=== PATIENT | female | born 1960 | race Native Hawaiian/Other Pacific Islander ===

== ENCOUNTER → 2018-03-19 | Outpatient (CLI) | payer BC, OTHER ==
--- NOTE | 2018-03-19 14:21 | Diagnostic Imaging Report ---
Clinical indication: Patient with hematuria. Exam: Ultrasound of both kidneys. Comparison: None. Findings: Both kidneys are normal in size, shape, echogenicity and cortical thickness without hydronephrosis, stones, or focal lesions with the right and left kidneys measuring 8.8 cm and 9.7 cm in their craniocaudal dimensions, respectively. The bladder is partially fluid-filled with no gross abnormality. Ureteral jets are not visualized on this exam. Impression: 1: Unremarkable bilateral renal ultrasound. 2: Bilateral ureteral jets are not visualized on this exam. Otherwise, the bladder is unremarkable as visualized. Dictated by: Dictated on workstation # [id number]
== END ==
LOC: RAD 13:25
PROVIDERS: ATTEND Nurse Practitioner Adult Health
DX: R31.0 Gross hematuria (principal); R31.29 Other microscopic hematuria
CPT/HCPCS: 76770

== ENCOUNTER 2019-02-07 12:30 | Outpatient (CLI) | payer OTHER ==
[~2019-02-07] VITALS: Ht 165.1 cm; Wt 76.2 kg
[2019-02-07] MEDS ORDERED: LEVO75TA6 PO (12:46)
[2019-02-07] MEDS ORDERED: ESTR0.62 PO (12:46)
== END 2019-02-07 12:56 | disposition home or self-care (01) ==
LOC: PREOP 12:30
PROVIDERS: ATTEND Surgery
DX: Z01.818 Encounter for other preprocedural examination (principal)

== ENCOUNTER 2019-02-12 08:25 | Day surgery (SDC) | payer OTHER ==
[~2019-02-12] VITALS: Ht 165.1 cm; Wt 76.2 kg
[~2019-02-12 08:25] MED LIST: ESTR0.62 PO; LEVO75TA6 PO
--- OUTSIDE RECORDS SUMMARY | 2019-02-12 08:29 | XMS REPORT ---
Author Author Migration, Doctor Organization [facility] Address Unknown Phone Unavailable Care Team Providers Care Director Corporate Security Name Role Phone Migration, Doctor Unavailable Unavailable PROBLEMS Type Condition ICD9-CM Code DVE96-NG Code Onset Dates Condition Status SNOMED Code Problem Overweight (BMI 25.0-29.9) E66.3 Active 381539574 Problem Postablative hypothyroidism E89.0 Active 927684737 Problem Papanicolaou smear of cervix with atypical squamous cells of undetermined significance (ASC-US) 795.01 Active 432795080 Problem Encopresis 307.7 Active 401217420 ALLERGIES No Information ENCOUNTERS Encounter Location Date Diagnosis [facility] [address] [id number] December, Postablative hypothyroidism E89.0 and Overweight (BMI 25.0-29.9) E66.3 [facility] [id number] [place] [id number] Oct, [address] [id number] Jul, [facility] [id number] [place] [address] [id number] Jul, Hypothyroidism, unspecified hypothyroidism type E03.9 [id number] [place] [address] [id number] Jun, Hypothyroidism, unspecified hypothyroidism type E03.9 [id number] [place] [id number] Jan, [address] [id number] December, Visit for suture removal V58.32 [facility] [id number] [place] [address] Nov, [facility] [id number] [place] [address] Nov, [facility] [address] [id number] [place] [id number] May, [facility] [address] [facility] [id number] [place] [address] May, [facility] [address] [id number] [place] [id number] May, [facility] [address] [facility] [id number] [place] [address] May, [facility] [address] [id number] [place] [id number] Apr, [facility] [address] [facility] [id number] [place] [address] Apr, [facility] [address] [id number] [place] [id number] Nov, [facility] [address] [place] [address] Nov, [facility] [address] [id number] [place] [phone] Apr, [facility] [address] [id number] [place] [id number] Apr, [facility] [address] [facility] [id number] [place] [address] Mar, [facility] [address] [id number] [place] [id number] Mar, [facility] [address] [id number] [place] [id number] Sep, [facility] [place] [facility] [address] [facility] [id number] [place] [address] Sep, [facility] [address] [id number] [place] [id number] Aug, [facility] [address] [id number] [place] [id number] Aug, [facility] [address] [id number] [place] [phone] Aug, [facility] [address] [id number] [place] [id number] Jul, [facility] [address] [id number] [place] [id number] Jul, [facility] [place] [facility] [address] [facility] [id number] [place] [address] Jul, [facility] [place] [facility] [address] [facility] [id number] [place] [address] Jul, [facility] [address] [id number] [place] [id number] Jul, [facility] [place] [facility] [address] [facility] [id number] [place] [address] Jul, [facility] [place] [facility] [address] [facility] [id number] [place] [address] 17 Jul, 2012 [facility] [address] [id number] [place] [id number] 15 Jul, 2012 [facility] [place] [facility] [address] [facility] [id number] [place] [address] 15 Jul, 2012 [facility] [address] [id number] [place] [id number] 14 Jul, 2012 [facility] [place] [facility] [address] [facility] [id number] [place] [address] 14 Jul, 2012 [facility] [address] [id number] [place] [id number] 13 Jul, 2012 [facility] [place] [facility] [address] [facility] [id number] [place] [address] Jul, [facility] [address] [id number] [place] [id number] Jul, [facility] [place] [facility] [address] [facility] [id number] [place] [address] Jul, [facility] [address] [id number] [place] [id number] Jun, [facility] [place] [facility] [address] [facility] [id number] [place] [address] Jun, [facility] [address] [id number] [place] [id number] Mar, [facility] [id number] [place] [address] Nov, [facility] [address] [id number] [place] [id number] Nov, [facility] [address]100[place] [place] [id number] Nov, [facility] [address] [place] [address] [id number] Oct, [address] [place] [address] [id number] Sep, [facility] [id number] [place] [address] May, [facility] [id number] [place] [address] Jul, [facility] [id number] [place] [address] Jul, [facility] [id number] [place] [address] May, IMMUNIZATIONS No Known Immunizations SOCIAL HISTORY Never Assessed REASON FOR VISIT [facility] [place] VITAL SIGNS MEDICATIONS No Known Medications RESULTS No Results PROCEDURES No Known procedures INSTRUCTIONS MEDICATIONS ADMINISTERED No Known Medications MEDICAL (GENERAL) HISTORY Type Description Date Medical History hyperlipidemia Medical History hyperthyroidism Surgical History orthopedic surgery-titanium yuni in left leg 08/2008
--- OUTSIDE RECORDS SUMMARY | 2019-02-12 08:29 | XMS REPORT ---
Author Author TIARRA BARROSO [facility] eClinicalWorks Address Unknown Phone Unavailable Care Team Providers Care Field Logistics Coordinator Name Role Phone TIARRA BARROSO CP Unavailable Allergies No Known Allergies Problems Problem Type Condition Code Onset Dates Condition Status Problem Papanicolaou smear of cervix with atypical squamous cells of undetermined significance (ASC-US) 795.01 Active Assessment Hypothyroidism, unspecified hypothyroidism type E03.9 Active Problem Screening for lipoid disorders V77.91 Active Problem Unspecified breast screening V76.10 Active Problem Family history of diabetes mellitus V18.0 Active Problem Sacroiliitis, not elsewhere classified 720.2 Active Problem Encopresis 307.7 Active Problem Screening for malignant neoplasm of the cervix V76.2 Active Problem Special screening for malignant neoplasms, colon V76.51 Active Medications No Known Medications Procedures Procedure Coding System Code Date LIPID PANEL CPT-4 67918 Jul 06, 2015 COMPLETE CBC W/AUTO DIFF WBC CPT-4 88930 Jul 06, 2015 COMPREHEN METABOLIC PANEL CPT-4 38191 Jul 06, 2015 VENIPUNCT, ROUTINE* CPT-4 73461 Jul 06, 2015 ASSAY THYROID STIM HORMONE CPT-4 90172 Jul 06, 2015 Results No Known Results Summary Purpose eClinicalWorks Submission
--- OUTSIDE RECORDS SUMMARY | 2019-02-12 08:29 | XMS REPORT ---
Author Author TIARRA BARROSO [facility] [employer]Works Address Unknown Phone Unavailable Care Team Providers Care Scuba Diver Name Role Phone TIARRA BARROSO CP Unavailable Allergies No Known Allergies Problems Problem Type Condition Code Onset Dates Condition Status Problem Papanicolaou smear of cervix with atypical squamous cells of undetermined significance (ASC-US) 795.01 Active Problem Screening for lipoid disorders V77.91 Active Problem Unspecified breast screening V76.10 Active Problem Family history of diabetes mellitus V18.0 Active Problem Sacroiliitis, not elsewhere classified 720.2 Active Problem Encopresis 307.7 Active Problem Screening for malignant neoplasm of the cervix V76.2 Active Problem Special screening for malignant neoplasms, colon V76.51 Active Medications Medication Code System Code Instructions Start Date End Date Status Dosage Levothyroxine Sodium [facility] [address]-73 100 MCG Orally Once a day Jul 02, 2015 1 tablet Results No Known Results Summary Purpose eClinicalWorks Submission
--- OUTSIDE RECORDS SUMMARY | 2019-02-12 08:29 | XMS REPORT ---
Author Author Migration, Doctor Organization [facility] Address Unknown Phone Unavailable Care Team Providers Care Head Of Integrated Media Name Role Phone Migration, Doctor Unavailable Unavailable PROBLEMS Type Condition ICD9-CM Code YYV73-PL Code Onset Dates Condition Status SNOMED Code Problem Overweight (BMI 25.0-29.9) E66.3 Active 724734346 Problem Postablative hypothyroidism E89.0 Active 927422731 Problem Papanicolaou smear of cervix with atypical squamous cells of undetermined significance (ASC-US) 795.01 Active 775200990 Problem Encopresis 307.7 Active 438470623 ALLERGIES No Information ENCOUNTERS Encounter Location Date Diagnosis [facility] [address] [id number] December, Postablative hypothyroidism E89.0 and Overweight (BMI 25.0-29.9) E66.3 [facility] [id number] [place] [address] [id number] Oct, [address] [id number] Jul, [facility] [id number] [place] [address] [id number] Jul, Hypothyroidism, unspecified hypothyroidism type E03.9 [id number] [place] [address] [id number] Jun, Hypothyroidism, unspecified hypothyroidism type E03.9 [id number] [place] [address] [id number] Jan, [address] [id number] December, Visit for suture removal V58.32 [facility] [id number] [place] [address] Nov, [facility] [id number] [place] [address] Nov, [facility] [address] [id number] [place] [id number] May, [facility] [address] [facility] [id number] [place] [address] May, [facility] [address] [id number] [place] [id number] May, [facility] [address] [facility] [id number] [place] [address] May, [facility] [address] [id number] [place] [id number] Apr, [facility] [address] [facility] [id number] [place] [address] Apr, [facility] [address] [id number] [place] [id number] Nov, [facility] [address] [address] Nov, [facility] [address] [id number] [place] [id number] Apr, [facility] [address] [id number] [place] [id number] Apr, [facility] [address] [facility] [id number] [place] [address] Mar, [facility] [address] [id number] [place] [id number] Mar, [facility] [address] [id number] [place] [id number] Sep, [facility] [place] [facility] [address] [facility] [id number] [place] [address] Sep, [facility] [address] [id number] [place] [phone] Aug, [facility] [address] [id number] [place] [id number] Aug, [facility] [address] [id number] [place] [id number] Aug, [facility] [address] [id number] [place] [id number] Jul, [facility] [address] [id number] [place] [id number] Jul, [facility] [place] [facility] [address] [facility] [id number] [place] [address] Jul, [facility] [place] [facility] [address] [facility] [id number] [place] [address] Jul, [facility] [address] [id number] [place] [phone] Jul, [facility] [place] [facility] [address] [facility] [id number] [place] [address] Jul, [facility] [place] [facility] [address] [facility] [id number] [place] [address] 17 Jul, 2012 [facility] [address] [id number] [place] [id number] 15 Jul, 2012 [facility] [place] [facility] [address] [facility] [id number] [place] [address] 15 Jul, 2012 [facility] [address] [id number] [place] [id number] 14 Jul, 2012 [facility] [place] [facility] [address] [facility] [id number] [place] [address] 14 Jul, 2012 [facility] [address] [id number] [place] [id number] 13 Jul, 2012 [facility] [place] [facility] [address] [facility] [id number] [place] [address] Jul, [facility] [address] [id number] [place] [id number] Jul, [facility] [place] [facility] [address] [facility] [id number] [place] [address] Jul, [facility] [address] [id number] [place] [id number] Jun, [facility] [place] [facility] [address] [facility] [id number] [place] [address] Jun, [facility] [address] [id number] [place] [id number] Mar, [facility] [id number] [place] [address] Nov, [facility] [address] [id number] [place] [id number] Nov, [facility] [address]100[place] [id number] Nov, [facility] [address] [place] [address] [id number] Oct, [address] [place] [id number] Sep, [facility] [id number] [place] [address] May, [facility] [id number] [place] [address] Jul, [facility] [id number] [place] [address] Jul, [facility] [id number] [place] [address] May, IMMUNIZATIONS No Known Immunizations SOCIAL HISTORY Never Assessed REASON FOR VISIT [facility] [place] PLAN OF CARE VITAL SIGNS MEDICATIONS No Known Medications RESULTS No Results PROCEDURES No Known procedures INSTRUCTIONS MEDICATIONS ADMINISTERED No Known Medications MEDICAL (GENERAL) HISTORY Type Description Date Medical History hyperlipidemia Medical History hyperthyroidism Surgical History orthopedic surgery-titanium yuni in left leg 08/2008
--- OUTSIDE RECORDS SUMMARY | 2019-02-12 08:29 | XMS REPORT ---
Author Author Migration, Doctor Organization [facility] Address Unknown Phone Unavailable Care Team Providers Care Documentation Lead Name Role Phone Migration, Doctor Unavailable Unavailable PROBLEMS Type Condition ICD9-CM Code MKP67-FJ Code Onset Dates Condition Status SNOMED Code Problem Overweight (BMI 25.0-29.9) E66.3 Active 514986668 Problem Postablative hypothyroidism E89.0 Active 894738651 Problem Papanicolaou smear of cervix with atypical squamous cells of undetermined significance (ASC-US) 795.01 Active 393785078 Problem Encopresis 307.7 Active 107471071 ALLERGIES No Information ENCOUNTERS Encounter Location Date Diagnosis [facility] [address] [id number] December, Postablative hypothyroidism E89.0 and Overweight (BMI 25.0-29.9) E66.3 [facility] [id number] [place] [id number] Oct, [address] [id number] Jul, [facility] [id number] [place] [address] [id number] Jul, Hypothyroidism, unspecified hypothyroidism type E03.9 [id number] [place] [address] [id number] Jun, Hypothyroidism, unspecified hypothyroidism type E03.9 [id number] [place] [id number] Jan, [address] [id number] December, Visit for suture removal V58.32 [facility] [id number] [place] [address] Nov, [facility] [id number] [place] [address] Nov, [facility] [address] [id number] [place] [id number] May, [facility] [address] [facility] [id number][place] [address] May, [facility] [address] [id number] [place] [id number] May, [facility] [address] [facility] [id number], [place] [address] May, [facility] [address] [id number] [place] [id number] Apr, [facility] [address] [facility] [id number][place] [address] Apr, [facility] [address] [id number], [place] [id number] Nov, [facility] [address]005[address], [place] [address] Nov, [facility] [address] [id number][place] [id number] Apr, [facility] [address] [id number], [place] [phone] Apr, [facility] [address] [facility] [id number], [place] [address] Mar, [facility] [address] [id number], [place] [id number] Mar, [facility] [address] [id number], [place] [id number] Sep, [facility] [place] [facility] [address] [facility] [id number][place] [address] Sep, [facility] [address] [id number], [place] [id number] Aug, [facility] [address] [id number], [place] 778955600 Aug, [facility] [address] [id number], [place] [id number] Aug, [facility] [address] [id number] [place] [id number] Jul, [facility] [address] [id number] [place] [id number] Jul, [facility] [place] [facility] [address] [facility] [id number] [place] [address] Jul, [facility] [place] [facility] [address] [facility] [id number], [place] [address] Jul, [facility] [address] [id number] [place] [id number] Jul, [facility] [place] [facility] [address] [facility] [id number] [place] [address] Jul, [facility] [place] [facility] [address] [facility] [id number][place] [address] 17 Jul, 2012 [facility] [address] [id number] [place] [id number] 15 Jul, 2012 [facility] [place] [facility] [address] [facility] [id number], [place] [address] 15 Jul, 2012 [facility] [address] [id number] [place] [id number] 14 Jul, 2012 [facility] [place] [facility] [address] [facility] [id number], [place] [address] 14 Jul, 2012 [facility] [address] [id number] [place] [id number] 13 Jul, 2012 [facility] [place] [facility] [address] [facility] [id number], [place] [address] Jul, [facility] [address] [id number] [place] [id number] Jul, [facility] [place] [facility] [address] [facility] [id number][place] [address] Jul, [facility] [address] [id number] [place] [id number] Jun, [facility] [place] [facility] [address] [facility] [id number], [place] [address] Jun, [facility] [address] [id number], [place] [id number] Mar, [facility] [id number] [place] [address] Nov, [facility] [address] [id number], [place] [id number] Nov, [facility] [address]00565[address] [id number] Nov, [facility] [address] [place] [address] [id number] Oct, [address] [place] [address] [id number] Sep, [facility] [id number] [place] [address] May, [facility] [id number] [place] [address] Jul, [facility] [id number] [place] [address] Jul, [facility] [id number] [place] [address] May, IMMUNIZATIONS No Known Immunizations SOCIAL HISTORY Never Assessed REASON FOR VISIT [facility] [place] PLAN OF CARE VITAL SIGNS MEDICATIONS No Known Medications RESULTS No Results PROCEDURES No Known procedures INSTRUCTIONS MEDICATIONS ADMINISTERED No Known Medications MEDICAL (GENERAL) HISTORY Type Description Date Medical History hyperlipidemia Medical History hyperthyroidism Surgical History orthopedic surgery-titanium yuni in left leg 08/2008
--- OUTSIDE RECORDS SUMMARY | 2019-02-12 08:29 | XMS REPORT ---
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 638989632 Problem Papanicolaou smear of cervix with atypical squamous cells of undetermined significance (ASC-US) 795.01 Active 843473700 Problem Encopresis 307.7 Active [id number] ALLERGIES No Information ENCOUNTERS Encounter Location Date Diagnosis [facility] [address] [id number] December, Postablative hypothyroidism E89.0 and Overweight (BMI 25.0-29.9) E66.3 [facility] [address] [place] [id number] [place] [id number] Oct, [address] [id number] Jul, [facility] [id number] [place] [id number] Jul, Hypothyroidism, unspecified hypothyroidism type E03.9 [place] [id number] [place] [id number] Jun, Hypothyroidism, unspecified hypothyroidism type E03.9 [place] [id number] [place] [id number] Jan, [address] [id number] December, Visit for suture removal V58.32 [facility] [id number] [place] [id number] Nov, [facility] [id number] [place] [phone] Nov, [facility] [address] [id number] [place] [id number] May, [facility] [address] [facility] [id number], [place] [address] May, [facility] [address] [id number] [place] [id number] May, [facility] [address] [facility] [id number], [place] [address] May, [facility] [address] [id number] [place] [id number] Apr, [facility] [address] [facility] [id number], [place] [address] Apr, [facility] [address] [id number][place] [id number] Nov, [facility] [address] [address] Nov, [facility] [address] [id number][place] [id number] Apr, [facility] [address] [id number][place] [id number] Apr, [facility] [address] [facility] [id number], [place] [address] Mar, [facility] [address] [id number][place] [id number] Mar, [facility] [address] [id number][place] [phone] Sep, [facility] [place] [facility] [address] [facility] [id number], [place] [address] Sep, [facility] [address] [id number], [place] [id number] Aug, [facility] [address] [id number], [place] [id number] Aug, [facility] [address] [id number], [place] [id number] Aug, [facility] [address] [id number] [place] [id number] Jul, [facility] [address] [id number] [place] [id number] Jul, [facility] [place] [facility] [address] [facility] [id number] [place] [address] Jul, [facility] [place] [facility] [address] [facility] [id number], [place] [address] Jul, [facility] [address] [id number] [place] [id number] Jul, [facility] [place] [facility] [address] [facility] [id number] [place] [address] Jul, [facility] [place] [facility] [address] [facility] [id number], [place] [address] 17 Jul, 2012 [facility] [address] [id number] [place] [id number] 15 Jul, 2012 [facility] [place] [facility] [address] [facility] [id number], [place] [address] 15 Jul, 2012 [facility] [address] [id number] [place] [id number] 14 Jul, 2012 [facility] [place] [facility] [address] [facility] [id number], [place] [address] 14 Jul, 2012 [facility] [address] [id number] [place] [id number] 13 Jul, 2012 [facility] [place] [facility] [address] [facility] [id number], [place] [address] Jul, [facility] [address] [id number] [place] [id number] Jul, [facility] [place] [facility] [address] [facility] [id number], [place] [address] Jul, [facility] [address] [id number] [place] [id number] Jun, [facility] [place] [facility] [address] [facility] [id number], [place] [address] Jun, [facility] [address] [id number][place] [id number] Mar, [facility] [address] [id number], [place] [address] Nov, [facility] [address] [id number], [place] [id number] Nov, [facility] [id number] [id number] Nov, [facility] [id number], [place] [id number] Oct, [facility] [id number] [id number] Sep, [facility] [id number] [place] [address] May, [facility] [id number] [place] [address] Jul, [facility] [address] [id number], [place] [address] Jul, [facility] [address] [id number], [place] [address] May, IMMUNIZATIONS No Known Immunizations SOCIAL HISTORY Never Assessed REASON FOR VISIT [place] [place] VITAL SIGNS MEDICATIONS Medication Instructions Dosage Frequency Start Date End Date Duration Status Naproxen 500 mg take 1 tablet (500 mg) by oral route 2 times per day with food May, Active Flexeril 10 mg 1 tablet by Oral route 3 times per day PRN muscle spasm May, Active levothyroxine 100 mcg take 1 tablet by Oral route 1 time per day May, Active tramadol 50 mg take 1 tablet by Oral route 2 times per day as needed Apr, Active RESULTS No Results PROCEDURES No Known procedures INSTRUCTIONS MEDICATIONS ADMINISTERED No Known Medications MEDICAL (GENERAL) HISTORY Type Description Date Medical History hyperlipidemia Medical History hyperthyroidism Surgical History orthopedic surgery-titanium yuni in left leg 08/2008
--- OUTSIDE RECORDS SUMMARY | 2019-02-12 08:29 | XMS REPORT ---
Author Author TIARRA BARROSO [facility] eClinicalWorks Address Unknown Phone Unavailable Care Team Providers Care Factory Maintenance Technician Name Role Phone TIARRA BARROSO CP Unavailable Allergies, Adverse Reactions, Alerts Substance Reaction Event Type Penicillin V Potassium rash Drug Allergy Morphine Sulfate rash Drug Allergy Problems Problem Type Condition Code Onset Dates [...] Date End Date Status Dosage Levothyroxine Sodium [facility] [id number] 100 MCG Orally Once a day Jul 02, 2015 1 tablet Procedures Procedure Coding System Code Date Office Visit, Est Pt., Level 3 CPT-4 75140 Jul 02, 2015 Vital Signs Date/Time: Jul 02, 2015 Temperature 98.1 F Weight 169.4 lbs Height 64 in BMI 29.07 Index Blood Pressure Diastolic 76 mmHg Blood Pressure Systolic 112 mmHg Cardiac Monitoring Heart Rate 72 bpm Results No Known Results Summary Purpose eClinicalWorks Submission
--- OUTSIDE RECORDS SUMMARY | 2019-02-12 08:30 | XMS REPORT | Continuity of Care Document ---
Author Organization Unknown Address Unknown Allergies Active Description Code Type Severity Reaction Onset Reported/Identified Relationship to Patient Clinical Status Yes morphine Drug Allergy N/A N/A 06/02/2009 Yes Penicillins Drug Allergy N/A N/A 06/02/2009 Yes morphine Drug Allergy 06/02/2009 Yes Penicillins Drug Allergy 06/02/2009 Yes morphine [id number] Drug Allergy Unknown Vomiting 02/07/2019 Yes Penicillins [id number] Drug Allergy Unknown Hives 02/07/2019 Medications There is no data. Problems Date Dx Coded Attending Type Code Diagnosis Diagnosed By 06/02/2009 244.9 HYPOTHYROIDISM 06/02/2009 733.16 PATHOLOGIC FRACTURE OF TIBIA AND FIBULA 06/02/2009 244.9 HYPOTHYROIDISM 06/02/2009 733.16 PATHOLOGIC FRACTURE OF TIBIA AND FIBULA 06/02/2009 ARTI GALLOWAY MD 244.9 HYPOTHYROIDISM 06/02/2009 ARTI GALLOWAY MD 733.16 PATHOLOGIC FRACTURE OF TIBIA AND FIBULA 06/02/2009 ARTI GALLOWAY MD 244.9 HYPOTHYROIDISM 06/02/2009 ARTI GALLOWAY MD 733.16 PATHOLOGIC FRACTURE OF TIBIA AND FIBULA 06/02/2009 MEDHAT BROWN DO 244.9 HYPOTHYROIDISM 06/02/2009 MEDHAT BROWN DO 733.16 PATHOLOGIC FRACTURE OF TIBIA AND FIBULA 06/02/2009 244.9 HYPOTHYROIDISM 06/02/2009 733.16 PATHOLOGIC FRACTURE OF TIBIA AND FIBULA 06/02/2009 MEDHAT BROWN DO K 244.9 HYPOTHYROIDISM 06/02/2009 MEDHAT BROWN DO K 733.16 PATHOLOGIC FRACTURE OF TIBIA AND FIBULA 04/25/2010 784.0 HEADACHE 04/25/2010 784.0 HEADACHE 04/25/2010 ARTI GALLOWAY MD 784.0 HEADACHE 04/25/2010 ARTI GALLOWAY MD 784.0 HEADACHE 04/25/2010 MEDHAT BROWN DO 784.0 HEADACHE 04/25/2010 784.0 HEADACHE 04/25/2010 MEDHAT BROWN DO 784.0 HEADACHE 08/01/2010 719.46 PAIN IN JOINT INVOLVING LOWER LEG 08/01/2010 719.46 PAIN IN JOINT INVOLVING LOWER LEG 08/01/2010 ARTI GALLOWAY MD 719.46 PAIN IN JOINT INVOLVING LOWER LEG 08/01/2010 ARTI GALLOWAY MD 719.46 PAIN IN JOINT INVOLVING LOWER LEG 08/01/2010 MEDHAT BROWN DO 719.46 PAIN IN JOINT INVOLVING LOWER LEG 08/01/2010 719.46 PAIN IN JOINT INVOLVING LOWER LEG 08/01/2010 MEDHAT BROWN DO 719.46 PAIN IN JOINT INVOLVING LOWER LEG 05/11/2011 568.0 PERITONEAL ADHESIONS (POSTOPERATIVE) (POSTINFECTION) 05/11/2011 719.47 ankle joint pain 05/11/2011 568.0 PERITONEAL ADHESIONS (POSTOPERATIVE) (POSTINFECTION) 05/11/2011 719.47 ankle joint pain 05/11/2011 ARTI GALLOWAY MD 568.0 PERITONEAL ADHESIONS (POSTOPERATIVE) (POSTINFECTION) 05/11/2011 ARTI GALLOWAY MD 719.47 ankle joint pain 05/11/2011 ARTI GALLOWAY MD 568.0 PERITONEAL ADHESIONS (POSTOPERATIVE) (POSTINFECTION) 05/11/2011 ARTI GALLOWAY MD 719.47 ankle joint pain 05/11/2011 MEDHAT BROWN DO 568.0 PERITONEAL ADHESIONS (POSTOPERATIVE) (POSTINFECTION) 05/11/2011 MEDHAT BROWN DO 719.47 ankle joint pain 05/11/2011 568.0 PERITONEAL ADHESIONS (POSTOPERATIVE) (POSTINFECTION) 05/11/2011 719.47 ankle joint pain 05/11/2011 MEDHAT BROWN DO 568.0 PERITONEAL ADHESIONS (POSTOPERATIVE) (POSTINFECTION) 05/11/2011 MEDHAT BROWN DO 719.47 ankle joint pain 11/24/2011 307.7 ENCOPRESIS 11/24/2011 307.7 ENCOPRESIS 11/24/2011 ARTI GALLOWAY MD 307.7 ENCOPRESIS 11/24/2011 ARTI GALLOWAY MD 307.7 ENCOPRESIS 11/24/2011 MEDHAT BROWN DO 307.7 ENCOPRESIS 11/24/2011 307.7 ENCOPRESIS 11/24/2011 MEDHAT BROWN DO 307.7 ENCOPRESIS 07/16/2012 V18.0 Family history of Diabetes Mellitus 07/16/2012 V76.10 visit for: screening exam malignant neoplasm breast 07/16/2012 V76.2 Cervical Pap Smear 07/16/2012 V76.51 visit for: screening malignant neoplasm colon 07/16/2012 V77.91 visit for: screening exam lipoid disorders 07/16/2012 V18.0 Family history of Diabetes Mellitus 07/16/2012 V76.10 visit for: screening exam malignant neoplasm breast 07/16/2012 V76.2 Cervical Pap Smear 07/16/2012 V76.51 visit for: screening malignant neoplasm colon 07/16/2012 V77.91 visit for: screening exam lipoid disorders 07/16/2012 ARTI GALLOWAY MD V18.0 Family history of Diabetes Mellitus 07/16/2012 ARTI GALLOWAY MD V76.10 visit for: screening exam malignant neoplasm breast 07/16/2012 ARTI GALLOWAY MD V76.2 Cervical Pap Smear 07/16/2012 ARTI GALLOWAY MD V76.51 visit for: screening malignant neoplasm colon 07/16/2012 ARTI GALLOWAY MD V77.91 visit for: screening exam lipoid disorders 07/16/2012 ARTI GALLOWAY MD V18.0 Family history of Diabetes Mellitus 07/16/2012 ARTI GALLOWAY MD V76.10 visit for: screening exam malignant neoplasm breast 07/16/2012 ARTI GALLOWAY MD V76.2 Cervical Pap Smear 07/16/2012 ARTI GALLOWAY MD V76.51 visit for: screening malignant neoplasm colon 07/16/2012 ARTI GALLOWAY MD V77.91 visit for: screening exam lipoid disorders 07/16/2012 MEDHAT BROWN DO V18.0 Family history of Diabetes Mellitus 07/16/2012 MEDHAT BROWN DO V76.10 visit for: screening exam malignant neoplasm breast 07/16/2012 MEDHAT BROWN DO K V76.2 Cervical Pap Smear 07/16/2012 MEDHAT BROWN DO K V76.51 visit for: screening malignant neoplasm colon 07/16/2012 MEDHAT BROWN DO V77.91 visit for: screening exam lipoid disorders 07/16/2012 KAREN BROWN DOA K V18.0 Family history of Diabetes Mellitus 07/16/2012 KAREN BROWN DOA K V76.10 visit for: screening exam malignant neoplasm breast 07/16/2012 MEDHAT BROWN DO K V76.2 Cervical Pap Smear 07/16/2012 MEDHAT BROWN DO V76.51 visit for: screening malignant neoplasm colon 07/16/2012 MEDHAT BROWN DO V77.91 visit for: screening exam lipoid disorders 09/03/2012 LAVERNE MORALES, ARTI 795.01 Cerv Pap Smear (+) Atyp Squamous Cells Undetermined Signif 09/03/2012 MEDHAT BROWN DO 795.01 Cerv Pap Smear (+) Atyp Squamous Cells Undetermined Signif 09/03/2012 MEDHAT BROWN DO 795.01 Cerv Pap Smear (+) Atyp Squamous Cells Undetermined Signif 03/17/2013 MEDHAT BROWN DO 720.2 SACROILIITIS NOT ELSEWHERE CLASSIFIED 03/17/2013 MEDHAT BROWN DO 720.2 SACROILIITIS NOT ELSEWHERE CLASSIFIED 05/11/2014 MEDHAT BROWN DO V72.62 LABORATORY EXAMINATION ORDERED PART OF A ROUTINE GENERAL MEDICAL EXAMINATION 06/19/2018 Ot R31.0 GROSS HEMATURIA 06/19/2018 Ot R31.29 OTHER MICROSCOPIC HEMATURIA 10/15/2018 Ot R31.0 GROSS HEMATURIA 10/15/2018 Ot R31.29 OTHER MICROSCOPIC HEMATURIA 10/15/2018 Ot R31.0 GROSS HEMATURIA 10/15/2018 Ot R31.29 OTHER MICROSCOPIC HEMATURIA 10/15/2018 Ot R31.0 GROSS HEMATURIA 10/15/2018 Ot R31.29 OTHER MICROSCOPIC HEMATURIA 10/15/2018 RALEIGH GALLAGHER MD Ot E27.8 OTHER SPECIFIED DISORDERS OF ADRENAL GLA 10/15/2018 RALEIGH GALLAGHER MD Ot M47.816 SPONDYLOSIS W/O MYELOPATHY OR RADICULOPA 10/15/2018 RALEIGH GALLAGHER MD Ot R10.31 RIGHT LOWER QUADRANT PAIN 10/15/2018 RALEIGH GALLAGHER MD Ot R31.29 OTHER MICROSCOPIC HEMATURIA Procedures Code [place] [address] MAMMOGRAM, SCREENING 07/16/2012 11003 PAP SMEAR 07/16/2012 Q0091 PAP SMEAR OBTAIN SMEAR 07/16/2012 24117 HEMOCCULT 07/18/2012 18809 ROUTINE VENIPUNCTURE 07/19/2012 24711 CMP 07/19/2012 37155 LIPID PANEL 07/19/2012 47504 A1C (RML) 07/19/2012 49956 TSH 07/19/2012 08105 CBC 07/19/2012 41867 URINE TEST (IN-HOUSE) 09/03/2012 26437 COLP W/ BX & ECC 09/03/2012 44543 TSH 03/17/2013 05738 ROUTINE VENIPUNCTURE 05/11/2014 38318 TSH 05/11/2014 98662 CBC 05/11/2014 5189162 GFR CALC (RESULT ONLY) 05/11/2014 52111 CMP 05/11/2014 51505 LIPID PANEL 05/11/2014 Results There is no data. Encounters ACCT No. Visit Date/Time Discharge Status Pt. Type Provider Facility Loc./Unit Complaint [id number] 05/11/2014 13:37:00 05/11/2014 23:59:59 CLS Outpatient MEDHAT BROWN DO [id number] 03/17/2013 15:46:00 03/17/2013 23:59:59 CLS Outpatient MEDHAT BROWN DO [id number] 09/03/2012 10:41:00 09/03/2012 23:59:59 CLS Outpatient ARTI GALLOWAY MD [id number] 07/19/2012 12:18:00 07/19/2012 23:59:59 CLS Outpatient ARTI GALLOWAY MD [id number] 07/18/2012 11:41:00 07/18/2012 23:59:59 CLS Outpatient [id number] 07/16/2012 10:41:00 07/16/2012 23:59:59 CLS Outpatient [id number] 12/04/2011 15:52:00 12/04/2011 23:59:59 CLS Outpatient [id number] 02/07/2019 12:30:00 02/07/2019 12:56:00 DIS Outpatient BOSTON GE MD [facility] PREOP COLONOSCOPY [id number] 04/01/2018 08:38:00 04/01/2018 23:59:59 CLS Outpatient RALEIGH GALLAGHER MD [facility] RAD MICROHEMATURIA [id number] 02/12/2019 09:30:00 PEN Preadmit BOSTON GE MD [facility] ENDO SCREENING [id number] 03/19/2018 13:25:00 Document Registration
[2019-02-12] MEDS ORDERED: NS IV 500 ML 500 ML ONE (08:36)
[2019-02-12] MEDS ORDERED: NS IV 500 ML 500 ML IV PRN (08:48)
[2019-02-12] MEDS ORDERED: MIDAZOLAM 2 MG/2 ML (VERSED) VIAL IVP ONE (09:00)
[2019-02-12] MEDS ORDERED: fentaNYL INJECTION 100 MCG/2 ML AMP IVP ONE (09:00)
[2019-02-12] MEDS ORDERED: LIDOCAINE JELLY 2% 6 ML SYRINGE MM PRN (09:00)
[2019-02-12 09:04] VITALS: BP 93/73
[2019-02-12] MEDS ORDERED: LIDOCAINE JELLY 2% 6 ML SYRINGE ONE (09:16)
[2019-02-12] MEDS ORDERED: MIDAZOLAM 2 MG/2 ML (VERSED) VIAL ONE ×4 (09:16)
[2019-02-12] MEDS ORDERED: fentaNYL INJECTION 100 MCG/2 ML AMP ONE (09:16)
--- NOTE | 2019-02-12 09:29 | Progress Note-Pre Operative ---
Pre-Operative Progress Note H&P Reviewed The H&P was reviewed, patient examined and no changes noted. Date Seen by Provider: Feb 12, 2019 Time Seen by Provider: 09:15 Date H&P Reviewed: Feb 12, 2019 Time H&P Reviewed: 09:15 Pre-Operative Diagnosis: screening colonoscopy BOSTON GE MD Feb 12, 2019 09:29
--- NOTE | 2019-02-12 09:29 | Conscious Sedation/ASA ---
Conscious Sedation Pre-Proced Time 09:15 ASA Score 2 For ASA 3 and 4: Consider anesthesia and medical clearance. Also, for patients with a history of failed moderate sedation consider anesthesia. Airway Lungs Heart ASA score ASA 1: a normal healthy patient ASA 2: a patient with a mild systemic disease (mid diabetes, controlled hypertension, obesity ASA 3: a patient with a severe systemic disease that limits activity (angina, COPD, prior Myocardial infarction) ASA 4: a patient with an incapacitating disease that is a constant threat to life (CHF, renal failure) ASA 5: a moribund patient not expected to survive 24 hrs. (ruptured aneurysm) ASA 6: a declared brain- patient whose organs are being harvested. For emergent operations, add the letter E after the classification Mallampati Classification Grade 2 Sedation Plan Analgesia, Amnesia, Plan communicated to team members, Discussed options with patient/fam, Discussed risks with patient/fam The patient is an appropriate candidate to undergo the planned procedure, sedation, and anesthesia. The patient immediately re-assessed prior to indication. BOSTON GE MD Feb 12, 2019 09:29
[2019-02-12] MEDS ORDERED: ACETAMINOPHEN 325 MG TABLET PO PRN (09:30)
[2019-02-12] MEDS ORDERED: fentaNYL INJECTION 100 MCG/2 ML AMP IVP PRN (09:30)
[2019-02-12] MEDS ORDERED: ONDANSETRON 4 MG/2 ML (SDV) Z0FRAN IVP PRN (09:30)
[2019-02-12] MEDS ORDERED: HYDROcodone/APAP 5 MG/325 MG (LORTAB) TAB PO PRN (09:30)
--- NOTE | 2019-02-12 09:31 | Discharge Inst-Surgical ---
D/C Lap Instructions-LUMA Follow Up Activity as tolerated High Fiber Diet 25g or more per day Avoid Alcohol, Caffeine, Spicy Rebecca and Acid foods. Drink 64 fluid oz or more of fluids per day. Symptoms to Report: Fever over 101 degree F, Nausea/Vomiting If any problems/questions: Contact your physician or go to Emergency Room BOSTON GE MD Feb 12, 2019 09:31
--- NOTE | 2019-02-12 10:13 | Progress Note-Post Operative ---
Post-Operative Progess Note Surgeon (s)/Report Developer (s) Surgeon BOSTON GE MD Report Developer: none Pre-Operative Diagnosis screening colonoscopy Post-Operative Diagnosis mild chronic stage 2 ext and int hemorrhoids, small HP polyp rectum and splenic flexure(2mm). Procedure & Operative Findings Date of Procedure 02/12/19 Procedure Performed/Findings colonoscopy with bx. Anesthesia Type cs Estimated Blood Loss Estimated blood loss (mL): minimal Specimens/Packing Specimens Removed rectal and splnic flex polyp BOSTON GE MD Feb 12, 2019 10:13
[2019-02-12 10:15] VITALS: BP 110/67
[2019-02-12] MEDS ORDERED: ONDANSETRON 4 MG/2 ML (SDV) Z0FRAN ONE (10:50)
[2019-02-12 11:30] VITALS: BP 100/68
--- NOTE | 2019-02-12 11:47 | NUR ---
1100: ZOFRAN 4 MG IV GIVEN FOR NAUSEA. 1130; PATIENT STATES FEELING ALITTLE BETTER; JUST WANTING TO REST RIGHT NOW. Addendum: 02/12/19 at 1148 by ALEXANDREA DAMON RN Amended: Links added.
[2019-02-12 12:26] VITALS: BP 100/68
--- NOTE | 2019-02-12 13:18 | OPERATIVE REPORT ---
DATE OF SERVICE: 02/12/2019 ATTENDING PRIMARY DIESEL POWERPLANT SUPERVISOR: Edil CHAIREZ in [place], [place]. PREOPERATIVE DIAGNOSIS: Screening colonoscopy. POSTOPERATIVE DIAGNOSES: Mild chronic stage II external and internal hemorrhoids, small hyperplastic polyp of the rectum and splenic flexure, both approximately 1 to 2 mm in size. PROCEDURE: Colonoscopy with biopsy. SURGEON: Boston Ge MD ANESTHESIA: Conscious sedation. ESTIMATED BLOOD LOSS: Minimal. FINDINGS: Mild chronic stage II external and internal hemorrhoids, small hyperplastic polyp of the rectum and splenic flexure, both approximately 1 to 2 mm in size. DISPOSITION: The patient tolerated the procedure well. INDICATIONS: The patient is a 59-year-old female referred over to us for screening colonoscopy. She has not had a colonoscopy up to this point in her life. For the most part she is doing well, does not report any major issues with diarrhea nor constipation as well as no red blood per rectum nor any dark tarry stools. She also does not report any family history of colon cancer. DESCRIPTION OF PROCEDURE: The patient was brought to the endoscopy suite, laid in left lateral decubitus position after adequate IV pain and sedating medications, digital rectal examination was performed. Mild chronic stage II external and internal hemorrhoids were identified, which were not actively edematous nor inflamed and no bleeding. Normal sphincter tone was felt and there were no palpable masses. The endoscope was then intubated to the anus and rectum gently insufflated. There was a small hyperplastic polyp of the rectum identified, which was 1 to 2 mm in size and flat and appeared to be benign hyperplastic polyp. This was biopsied and destroyed using forceps and electrocautery. The endoscope was then advanced to the remainder of the rectum. We then proceeded through the sigmoid colon where no diverticulosis identified. Endoscope was then advanced through the descending colon to the hepatic flexure where another small hyperplastic polyp appearing lesion identified. This was approximately 2 mm in size. This was biopsied and destroyed using forceps and electrocautery with visualization of good hemostasis. The endoscope was then advanced to remainder of the transverse and ascending colon to the cecum. These segments were normal. The endoscope was then slowly withdrawn while taking a second look and suctioning of residual air with no additional findings. The patient tolerated the procedure well. We will recommend medical management with a high fiber diet with at least 25 grams of fiber daily as well as significant amounts of water to promote soft stools on a daily basis. These polyps appear to be benign hyperplastic polyps; however, we will await the pathology report. If these are indeed hyperplastic polyps, she may wait 10 years for next colonoscopy. However, if there is any villous component identified of an adenomatous polyp, we will recommend a followup colonoscopy in 3 years. Job ID: [id number] DocumentID: [id number] Dictated Date: 02/12/2019 10:10:43 Certified Dietary Manager Date: 02/12/2019 13:17:32 Dictated By: BOSTON GE MD MTDD
== END 2019-02-12 12:40 | disposition home or self-care (01) ==
LOC: ENDO 08:25
PROVIDERS: ATTEND Surgery
DX: Z12.11 Encounter for screening for malignant neoplasm of colon (principal); D12.3 Benign neoplasm of transverse colon; K62.1 Rectal polyp; K64.1 Second degree hemorrhoids; E03.9 Hypothyroidism, unspecified; Z88.0 Allergy status to penicillin; Z88.5 Allergy status to narcotic agent; Z79.899 Other long term (current) drug therapy; F17.210 Nicotine dependence, cigarettes, uncomplicated; Z80.3 Family history of malignant neoplasm of breast; Z80.1 Family history of malignant neoplasm of trachea, bronchus and lung